=== PATIENT | female | born 1965 | race African-American/Black ===

== ENCOUNTER 2021-07-30 10:15 | Emergency (ER) | payer OTHER ==
[2021-07-30 10:33] VITALS: BP 184/86; PULSE 112; TEMP 98.6; BMI 26.2
[2021-07-30] MEDS ORDERED: LOSARTAN POTASSIUM 50 MG TABLET PO ONE (11:08)
== END 2021-07-30 12:15 | disposition left against medical advice (07) ==
LOC: JER 10:15
DX: R14.0 Abdominal distension (gaseous) (principal); R60.9 Edema, unspecified
CPT/HCPCS: 99283-25; 99284-25